=== PATIENT | male | born 1965 | race Caucasian/White ===

== ENCOUNTER 2016-05-08 11:08 | Emergency (ER) | payer OTHER ==
[~2016-05-08] VITALS: Ht 181.6 cm; Wt 88.5 kg
[~2016-05-08 11:08] MED LIST: ATENOLOL25 M1 PO; ATIVAN0.5 MG PO; ATIVAN1 M1 PO; BACTRIM DS TAB1 EACH PO; BACTROBAN15 GM TOP; CHLORDIAZEPOXID10 M2 PO; CIPRO500 M1 PO; CITALOPRAM HBR20 MG PO; FOLIC ACID 1 MG PO; IBUPROFEN600 M1 PO; KEFLEX500 M1 PO; Theragran Vitamins PO; VITAMIN B1100 MG PO
--- NOTE | 2016-05-08 12:26 | ED MVC/FALL/TRAUMA COMPLAINT ---
History of Present Illness General Chief Complaint: General Adult Stated Complaint: S/P FALL THIS AM "RIB PAIN" Source: patient, old records Exam Limitations: no limitations Vital Signs & Intake/Output Vital Signs & Intake/Output Vital Signs Date Time Temp Pulse Resp B/P Pulse O2 O2 Flow FiO2 Ox Delivery Rate 05/08 1144 97 Room Air 05/08 1115 97.4 120 16 133/89 98 Room Air Allergies Coded Allergies: No Known Drug Allergies (02/03/16) Reconcile Medications Ibuprofen 600 MG TABLET 1 TAB PO TID PRN PAIN with food Triage Note: PT STATES THAT HE TRIPPED OVER HIS DOG THIS AM AND HIT R SIDE RIBS ON COFFEE TABLE, DENIES HITTING HIS HEAD OT LOC. TOOK MOTRIN Triage Nurses Notes Reviewed? yes HPI: Patient presents for evaluation of injury sustained status post fall at 4:00 this morning at home. Patient states he had gotten up to use the bathroom and tripped over his dog. He landed on a coffee table striking the right side of his chest. He now presents for evaluation of a severe sharp right-sided chest and rib pain that worsens with coughing. He states he had fallen about a month ago with a suspected rib injury at that time as well. He tried Motrin 600 mg without improvement. Past History Travel History Traveled to [place] past 21 day No Medical History Any Pertinent Medical History? 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 History of MRSA: No History of VRE: No History of CDIFF: No Tetanus Vaccine: 07/05/15 Surgical History Surgical History: pilonidal cyst excision, left middle phalanx tenolysis, left shoulder glenohumoral debridement with anterior arthroscopic acromioplasty and distal clavicle excision Psychosocial History Who do you live with Patient/Self Services at Home None What is your primary language Mohawk Tobacco Use: Current Daily Use Daily Tobacco Use Amount/Type: => 5 Cigarettes daily ETOH Use: alcoholic Illicit Drug Use: denies illicit drug use Family History Family History, If Any: SISTER FH: multiple sclerosis FATHER FH: alcoholism Hx Contributory? No Review of Systems Review of Systems Constitutional: Reports: no symptoms. Eyes: Reports: no symptoms. Ears, Nose, Throat, Mouth: Reports: no symptoms. Respiratory: Reports: no symptoms. Cardiovascular: Reports: no symptoms. Gastrointestinal/Abdominal: Reports: no symptoms. Genitourinary: Reports: no symptoms. Musculoskeletal: Reports: see HPI. Skin: Reports: no symptoms. Neurological/Psychological: Reports: no symptoms. All Other Systems: Reviewed and Negative Physical Exam Physical Exam General Appearance: see below Comments: Gen.: Well-nourished, well-developed, no acute respiratory distress. Head: Normocephalic, atraumatic, nontender. Eyes: Normal inspection bilaterally, estrellita, EOMI Ears: Normal inspection bilaterally Nose: Normal inspection Throat/mouth : Moist mucosa Neck: Supple, full range of motion, no goiter, nontender Heart: Regular rate and rhythm, no murmurs rubs or gallops Lungs: Clear to auscultation bilaterally with normal air entry Chest: Right lateral rib tenderness without soft tissue swelling, ecchymoses or abrasion. Question of subcutaneous emphysema. Back: Normal range of motion, nontender Abdomen: Soft, nontender, nondistended, normal bowel sounds Extremities: Normal range of motion grossly, no tenderness, no cyanosis clubbing or edema of the upper extremities Neurologic: Cranial nerves grossly intact, speech is clear Skin: warm and dry and without ecchymoses or soft tissue swelling or erythema Psychiatric: Calm, cooperative, no apparent delusions or hallucinations Core Measures ACS in differential dx? No Severe Sepsis Present: No Septic Shock Present: No Progress Differential Diagnosis: FX,CONTUSION Plan of Care: Orders Procedure Date/time Status XRY-RIBS UNILATERAL-RIGHT 05/08 1225 Active XRY-CHEST XRAY, ONE VIEW ONLY 05/08 1225 Active Diagnostic Imaging: Discussed w/RAD: Radiology Read. Radiology Impression: PATIENT: BRYAN MENDOZA PRESENT AGE: 51 PATIENT ACCOUNT NO: [id number] : 63 LOCATION: [facility] ORDERING PHYSICIAN: GAGAN GARAY MD SERVICE DATE: 05/08/16 EXAM TYPE: RAD - XRY-RIBS UNILATERAL-RIGHT EXAMINATION: XR RIBS, RIGHT CLINICAL INFORMATION : Fall with right rib pain and tenderness COMPARISON: 04/13/2016 TECHNIQUE: PA chest. AP and lateral views of the right ribs. FINDINGS: Lung volumes are symmetric. No focal consolidation is seen. No evidence of pneumothorax, pleural effusion, or pulmonary edema. The cardiomediastinal contour is unremarkable. No displaced rib fracture is seen. IMPRESSION: No rib fracture identified. No acute cardiopulmonary findings. 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 <Electronically signed in Other Vendor System> SIGNED BY: LAKESHA MCINTYRE MD 05/08/161357 Departure Departure Disposition: HOME OR SELF CARE Condition: Stable Clinical Impression Primary Impression: Chest wall contusion Qualifiers: Encounter type: initial encounter Laterality: right Qualified Code: S20.211A - Contusion of right front wall of thorax, initial encounter Referrals: JAMES ACOSTA MD (PCP/Family) Additional Instructions: Voltaren as needed for your rib pain. Add tramadol if necessary. Ice over the next 48 hours then switch to heat. Activity as tolerated. Follow-up with your primary care doctor in 2 weeks if not improved. Return if any concerns or sudden worsening. Please note that there might be incidental findings in your evaluation that are unrelated to the current emergency department visit. Please notify your primary care doctor about this emergency department visit in order to obtain and review all of the testing performed so that these incidental findings can be monitored as needed. If you had an x-ray performed, please understand that some fractures may not be seen on the initial set of x-rays. If your symptoms persist you might need a repeat set of x-rays to check for such a fracture. If you had a laceration evaluated, please understand that foreign bodies such as glass or wood may not be visible to the naked eye or on plain x-rays. If the wound becomes red, swollen, increasingly more painful or if there is any drainage from the wound, please have it reevaluated by a physician for the possibility of a retained foreign body. Thank you for choosing the [facility] Emergency Department for your care. It was a pleasure to serve you today. Gagan Garay M.D. [facility] Departure Forms: Customer Survey General Discharge Information Prescriptions: Current Visit Scripts Diclofenac Sodium 1 TAB PO BID PRN PAIN #14 TAB Tramadol HCl (Ultram) 1-2 TAB PO Q6P PRN PAIN #20 TAB
--- NOTE | 2016-05-08 13:58 | RADIOLOGY REPORT ---
EXAMINATION: XR RIBS, RIGHT CLINICAL INFORMATION: Fall with right rib pain and tenderness COMPARISON: 04/13/2016 TECHNIQUE: PA chest. AP and lateral views of the right ribs. FINDINGS: Lung volumes are symmetric. No focal consolidation is seen. No evidence of pneumothorax, pleural effusion, or pulmonary edema. The cardiomediastinal contour is unremarkable. No displaced rib fracture is seen. IMPRESSION: No rib fracture identified. No acute cardiopulmonary findings.
[2016-05-08] MEDS ORDERED: DICLOFENAC SODI75 M2 PO (14:09)
[2016-05-08] MEDS ORDERED: ULTRAM50 M1 PO (14:09)
[2016-05-08 14:21] VITALS: BP 128/84
== END 2016-05-08 14:25 ==
LOC: ERH 11:08
DX: S20.211A Contusion of right front wall of thorax, initial encounter (principal); R07.9 Chest pain, unspecified; W01.0XXA Fall on same level from slipping, tripping and stumbling without subsequent striking against object, initial encounter
CPT/HCPCS: 71100-RT

== ENCOUNTER 2016-05-31 20:15 | Emergency (ER) | payer OTHER ==
[~2016-05-31] VITALS: Ht 182.9 cm; Wt 90.7 kg
[~2016-05-31 20:15] MED LIST changes: +DICLOFENAC SODI75 M2 PO; +ULTRAM50 M1 PO
--- NOTE | 2016-05-31 20:47 | ED PSYCHIATRIC COMPLAINT ---
History of Present Illness General Chief Complaint: ETOH/Drug Related Complaint Stated Complaint: ETOH Source: patient, old records Exam Limitations: intoxication Vital Signs & Intake/Output Vital Signs & Intake/Output Vital Signs Date Time Temp Pulse Resp B/P Pulse O2 O2 Flow FiO2 Ox Delivery Rate 05/31 2250 97.6 90 20 141/83 97 Room Air 05/31 2245 97.6 90 20 141/83 05/319 98.2 98 18 135/86 05/31 2044 98.2 98 18 135/86 97 Room Air ED Intake and Output 06/01 0000 05/31 1200 Intake Total Output Total Balance Patient 200 lb Weight Allergies Coded Allergies: No Known Drug Allergies (02/03/16) Reconcile Medications Diclofenac Sodium 75 MG TABLET.DR 1 TAB PO BID PRN PAIN Ibuprofen 600 MG TABLET 1 TAB PO TID PRN PAIN with food Tramadol HCl (Ultram) 50 MG TABLET 1-2 TAB PO Q6P PRN PAIN Triage Note: 51 Y/O MALE BIBA FROM HOME FOR ETOH. PT CALLED EMS AND STS HE WAS SOBER BUT WONT SAY FOR HOW LONG JUST KEEPS SAYING "TOO LONG" AND FOR THE PAST 3 DAYS HAS BEEN BINGE DRINKING WHISKEY BUT AGAIN PT WONT STATE QUANTITY JUST " TOO MUCH". PT DENIES SI/HI AT PRESENT AND SECURITY AT BEDSIDE TO WAND AND CHANGE INTO GOWN. PT NOTED TO BE VERY UNCOOPERATIVE AND NEEDS A LOT OF PRODING TO COMPLY Triage Nurses Notes Reviewed? yes Onset: UNKNOWN Severity: severe Associated Symptoms: INTOXICATED HPI: This is a 51-year-old male arrives by EMS from home for chief complaint buccal intoxication. Patient admits to taking a lot today and every day. Denies any drug use. Denies feeling suicidal. He is awake and alert, in moderate distress , very tearful and sobbing. He states his fiance probably called EMS. (LAURA PIZARRO,SHERRI) Past History Travel History Traveled to [place] past 21 day No Medical History Any Pertinent Medical History? 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 History of MRSA: No History of VRE: No History of CDIFF: No Tetanus Vaccine: 07/05/15 Surgical History Surgical History: pilonidal cyst excision, left middle phalanx tenolysis, left shoulder glenohumoral debridement with anterior arthroscopic acromioplasty and distal clavicle excision Psychosocial History Who do you live with Patient/Self Services at Home None What is your primary language Azerbaijani Tobacco Use: Refused to answer ETOH Use: alcoholic Illicit Drug Use: denies illicit drug use Family History Family History, If Any: SISTER FH: multiple sclerosis FATHER FH: alcoholism Hx Contributory? No (SHERRI SANCHEZ MD) Review of Systems Review of Systems Constitutional: Reports: see HPI (LIMITED (INTOXICATED)). Respiratory: Denies: short of breath. Cardiovascular: Denies: chest pain. (SHERRI SANCHEZ MD) Physical Exam Physical Exam General Appearance: well developed/nourished, alert, awake, intoxicated Head: atraumatic, normal appearance Eyes: Bilateral: PERRL, EOMI. Ears, Nose, Throat: normal pharynx, normal ENT inspection, hearing grossly normal Neck: normal inspection, supple, full range of motion Respiratory: normal breath sounds, chest non-tender, no respiratory distress Cardiovascular: regular rate/rhythm Gastrointestinal: normal bowel sounds, soft, non-tender Extremities: normal range of motion Neurological/Psychiatric: awake, alert, INTOXICATED Appearance/Memory/Insight: disheveled, impaired insight Behavoir/Eye Contact/Speech: belligerent SAD PERSONS Done? patient not suicidal (SHERRI SANCHEZ MD) Progress Differential Diagnosis: ETOH INTOXICATION Plan of Care: SOBRIETY Hand-Off Endorsed To: JOHNIE PATEL MD Endorsed Time: 2300 Pending: other (SOBRIETY) (SHERRI SANCHEZ MD) Departure Departure Disposition: STILL A PATIENT Condition: Stable Clinical Impression Primary Impression: Alcohol intoxication Referrals: JAMES ACOSTA MD (PCP/Family) Departure Forms: Customer Survey General Discharge Information (SHERRI SANCHEZ MD) Departure Comments 06/01/16, 6:26AM.... Pt is awake and alert. He does not wish detox. He is otherwise well, denies SI/HI. He is coherent and clear in his speech and thinking. He is stable and safe for discharge. (JOHNIE PATEL MD)
[2016-06-01 06:35] VITALS: BP 132/82
[2016-06-02] MEDS ORDERED: ZOFRAN ODT4 M1 PO (08:11)
[2016-06-02] MEDS ORDERED: CHLORDIAZEPOXID25 M3 PO (08:23)
== END 2016-06-01 06:40 ==
LOC: ERH 20:15
DX: F10.129 Alcohol abuse with intoxication, unspecified (principal)

== ENCOUNTER 2016-06-01 21:55 | Emergency (ER) | payer OTHER ==
[~2016-06-01] VITALS: Ht 182.9 cm; Wt 86.2 kg
--- NOTE | 2016-06-01 22:22 | ED PSYCHIATRIC COMPLAINT ---
History of Present Illness General Chief Complaint: ETOH/Drug Related Complaint Stated Complaint: BIBA ETOH Source: patient, family, old records, EMS Exam Limitations: intoxication Vital Signs & Intake/Output Vital Signs & Intake/Output Vital Signs Date Time Temp Pulse Resp B/P Pulse O2 O2 Flow FiO2 Ox Delivery Rate 06/02 0800 98.8 109 20 152/94 97 Room Air 06/02 0759 97.0 109 20 152/94 06/02 0634 98.2 95 18 145/83 97 Room Air 06/02 0630 98.2 95 18 145/83 06/02 0430 98.7 86 18 152/92 06/02 0430 98.7 86 18 152/92 97 Room Air 06/01 2234 Room Air 06/01 2158 98.9 97 16 154/87 99 Room Air ED Intake and Output 06/02 0000 06/01 1200 Intake Total Output Total Balance Patient 190 lb Weight Allergies Coded Allergies: No Known Drug Allergies (02/03/16) Triage Note: BIBA FROM HOME FOR ETOH ABUSE. PER PT DRANK 1 GALLON OF WHISKEY. PT WAS HERE IN ED YESTERDAY FOR ETOH ABUSE ALSO. PT AWAKE, ALERT, ARGUMENTATIVE. PT BEING ALOOF IN ANSWERS WILL NOT SAY HOW MUCH HE DRANK. Triage Nurses Notes Reviewed? yes Unable To Obtain Hx Due To: patient intoxication Onset: Just prior to arrival Duration: day(s):, constant, continues in ED Timing: recent history Severity: severe Associated Symptoms: impaired concentration HPI: Patient has been drinking heavily was here yesterday for alcohol intoxication. His returned home from work and found him confused shaking. There's been no fever chills nausea vomiting diarrhea abdominal pain chest pain shortness breath headache dysuria rash bleeding suicidal ideation homicidal ideation hallucination. (CLARE PIZARRO,MARIE) Reconcile Medications Chlordiazepoxide HCl 25 MG CAPSULE 4 CAP PO AD PRN DETOX 1-2 TAB TID X 1 DAY 1-2 TAB BID X 1 DAY 1-2 TAB QD X 1 DAY Ondansetron (Zofran Odt) 4 MG TAB.RAPDIS 1 TAB PO Q6 PRN NAUSEA (LAURA PIZARRO,SHERRI) Past History Travel History Traveled to [place] past 21 day No Medical History Any Pertinent Medical History? 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 History of MRSA: No History of VRE: No History of CDIFF: No Tetanus Vaccine: 07/05/15 Surgical History Surgical History: pilonidal cyst excision, left middle phalanx tenolysis, left shoulder glenohumoral debridement with anterior arthroscopic acromioplasty and distal clavicle excision Psychosocial History Who do you live with Patient/Self Services at Home None What is your primary language Citizen Of [place] Tobacco Use: Current Daily Use Daily Tobacco Use Amount/Type: => 5 Cigarettes daily ETOH Use: alcoholic Illicit Drug Use: denies illicit drug use Family History Family History, If Any: SISTER FH: multiple sclerosis FATHER FH: alcoholism Hx Contributory? No (MARIE SPARKS MD) Review of Systems Review of Systems Constitutional: Reports: no symptoms. EENTM: Reports: no symptoms. Respiratory: Reports: no symptoms. Cardiovascular: Reports: no symptoms. GI: Reports: no symptoms. Genitourinary: Reports: no symptoms. Musculoskeletal: Reports: no symptoms. Skin: Reports: no symptoms. Neurological/Psychological: Reports: see HPI, anxiety, tremors. Hematologic/Endocrine: Reports: no symptoms. Immunologic/Allergic: Reports: no symptoms. All Other Systems: Reviewed and Negative (MARIE SPARKS MD) Physical Exam Physical Exam General Appearance: well developed/nourished, mild distress Head: atraumatic Eyes: Bilateral: PERRL, EOMI. 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 patient not suicidal (MARIE SPARKS MD) Progress Differential Diagnosis: drug intoxication, drug overdose, drug withdrawal, electrolyte abnormality, hypoglycemia Plan of Care: Orders Procedure Date/time Status Regular Diet 06/02 B Active Patient Safety Monitor 06/02 0615 Active Patient Safety Monitor 06/02 214 Active Patient Safety Monitor 06/01 2216 Active CIWA 06/01 2216 Active ETHANOL 06/01 2216 Complete COMPREHENSIVE METABOLIC PANEL 06/01 2216 Complete CBC WITHOUT DIFFERENTIAL 06/01 2216 Complete Laboratory Tests 06/01/16 1050: Anion Gap 12, Estimated GFR > 60, BUN/Creatinine Ratio 28.6 H, Glucose 105 H, Calcium 8.8, Total Bilirubin 0.6, AST 201 H, ALT 230 H, Alkaline Phosphatase 67, Total Protein 7.1, Albumin 4.2, Globulin 2.9, Albumin/Globulin Ratio 1.4, CBC w Diff NO MAN DIFF REQ, RBC 4.60 L, MCV 92.0, MCH 31.5 H, RDW 12.8, MPV 6.5 L, Gran % 40.2 L, Lymphocytes % 46.5, Monocytes % 12.2 H, Eosinophils % 0.6, Basophils % 0.5, Absolute Granulocytes 1.9, Absolute Lymphocytes 2.2, Absolute Monocytes 0.6, Absolute Eosinophils 0, Absolute Basophils 0, PUBS MCHC 34.3, Serum Alcohol 272.0 Hand-Off Endorsed To: SHERRI SANCHEZ MD Endorsed Time: 711 Pending: other (sobriety, CIWA) (MARIE SPARKS MD) Departure Departure Disposition: HOME OR SELF CARE Condition: Stable Clinical Impression Primary Impression: Alcohol dependence syndrome Qualifiers: Substance use status: with intoxication Complication of substance- induced condition: with delirium Qualified Code: F10.221 - Alcohol dependence with intoxication delirium Referrals: KARLA PIZARRO,JAMES Nelson (PCP/Family) Departure Forms: Customer Survey General Discharge Information (MARIE SPARKS MD) Departure Time of Disposition: 808 Additional Instructions: Follow up with the list of outpatient detox facilities provided to you this morning. Take the librium and zofran as directed. Your prescriptions are at your pharmacy. Prescriptions: Current Visit Scripts Ondansetron (Zofran Odt) 1 TAB PO Q6 PRN NAUSEA #20 TAB Chlordiazepoxide HCl 4 CAP PO AD PRN DETOX #12 CAP 1-2 TAB TID X 1 DAY 1-2 TAB BID X 1 DAY 1-2 TAB QD X 1 DAY (SHERRI SANCHEZ MD) (SHERRI SANCHEZ MD)
[2016-06-01 22:54] LABS: ABSOLUTE BASOPHIL COUNT 0 /CUMM (0.0-0.2); ABSOLUTE EOSINOPHIL COUNT 0 /CUMM (0.0-0.7); ABSOLUTE GRANULOCYTE CT 1.9 /CUMM (1.4-6.5); ABSOLUTE LYMPH COUNT 2.2 /CUMM (1.2-3.4); ABSOLUTE MONOCYTE COUNT 0.6 /CUMM (0.10-0.60); BASOPHIL % 0.5 % (0.0-2.0); EOSINOPHIL % 0.6 % (0-5); GRANULOCYTE % 40.2 % (42.2-75.2); HEMATOCRIT 42.3 % (42-52); MEAN CORPUSCULAR HGB 31.5 PG (27.0-31.0); MEAN CORPUSCULAR HGB CONC 34.3 G/DL (33.0-37.0); MEAN PLATELET VOLUME 6.5 FL (7.4-10.4); PLATELET COUNT 286 /CUMM (130-400); RBC DISTRIBUTION WIDTH 12.8 % (11.5-14.5); WHITE BLOOD CELL COUNT 4.8 /CUMM (4.8-10.8)
[2016-06-02 08:00] VITALS: BP 152/94
[2016-06-02] MEDS ORDERED: ZOFRAN ODT4 M1 PO (08:11)
[2016-06-02] MEDS ORDERED: CHLORDIAZEPOXID25 M3 PO (08:23)
== END 2016-06-02 08:44 ==
LOC: ERH 21:55
PROVIDERS: Emergency Medicine
DX: F10.20 Alcohol dependence, uncomplicated (principal)
CPT/HCPCS: G0480

== ENCOUNTER 2016-06-26 03:16 | Inpatient (IN) | payer OTHER ==
[~2016-06-26] VITALS: Ht 182.9 cm; Wt 86.2 kg
[2016-06-26] VITALS (8 sets, daily range): BP systolic 128–162; BP diastolic 70–110
[~2016-06-26 03:16] MED LIST changes: +CHLORDIAZEPOXID25 M3 PO; +ZOFRAN ODT4 M1 PO
--- NOTE | 2016-06-26 03:25 | NUR ---
PT BIBA FOR ?ALCOHOL WITHDRAWAL. PT HAS HX OF ALCOHOL ADDICTION. STATES LAST DRINK WAS AROUND 0500 IN 06/25/16 AND THAT HE DRANK "TOO MUCH, NOT REALLY SURE." PT ARRIVES ALERT, CONVERSING WITH STAFF AND TREMULOUS. TREMORS STOPPED WHILE PT SIGNING PAPERS FOR EMS.
[2016-06-26 03:39] LABS: ABSOLUTE BASOPHIL COUNT 0.1 /CUMM (0.0-0.2); ABSOLUTE EOSINOPHIL COUNT 0 /CUMM (0.0-0.7); ABSOLUTE GRANULOCYTE CT 5.1 /CUMM (1.4-6.5); ABSOLUTE LYMPH COUNT 2.3 /CUMM (1.2-3.4); ABSOLUTE MONOCYTE COUNT 0.5 /CUMM (0.10-0.60); BASOPHIL % 0.6 % (0.0-2.0); EOSINOPHIL % 0.4 % (0-5); HEMATOCRIT 44.3 % (42-52); MEAN CORPUSCULAR HGB 31.8 PG (27.0-31.0); MEAN CORPUSCULAR HGB CONC 34.2 G/DL (33.0-37.0); MEAN CORPUSCULAR VOLUME 93.1 FL (80.0-94.0); MEAN PLATELET VOLUME 6.5 FL (7.4-10.4); PLATELET COUNT 304 /CUMM (130-400); RBC DISTRIBUTION WIDTH 12.9 % (11.5-14.5); RED BLOOD CELL CT 4.76 /CUMM (4.70-6.10); WHITE BLOOD CELL COUNT 7.9 /CUMM (4.8-10.8)
--- NOTE | 2016-06-26 03:50 | NUR ---
PT CIWA 9. MD AWARE. PT MEDICATED WITH LIBRIUM AND ZOFRAN PER EMAR. WILL CTM.
--- NOTE | 2016-06-26 04:19 | NUR ---
PT RESTING COMFORTABLY ON STRETCHER AT THIS TIME. NO LONGER TREMULOUS. LIGHTS DIMMED PER PT REQUEST. WILL CTM.
--- NOTE | 2016-06-26 04:40 | NUR ---
PATIENT FIANCE TO BEDSIDE.
--- NOTE | 2016-06-26 04:45 | ED PSYCHIATRIC COMPLAINT ---
See Addendum History of Present Illness General Chief Complaint: ETOH/Drug Related Complaint Stated Complaint: BIBA ETOH WITHDRAWL Source: patient, old records, EMS Exam Limitations: no limitations Vital Signs & Intake/Output Vital Signs & Intake/Output Vital Signs Date Time Temp Pulse Resp B/P Pulse O2 O2 Flow FiO2 Ox Delivery Rate 06/26 0548 97.2 94 18 146/92 95 Room Air 06/26 0545 97.2 94 18 146/92 06/26 0340 97.4 106 20 162/98 06/26 0332 Room Air 06/26 0325 97.3 96 20 162/98 98 Room Air Allergies Coded Allergies: No Known Drug Allergies (02/03/16) Reconcile Medications Chlordiazepoxide HCl 25 MG CAPSULE 4 CAP PO AD PRN DETOX 1-2 TAB TID X 1 DAY 1-2 TAB BID X 1 DAY 1-2 TAB QD X 1 DAY Ondansetron (Zofran Odt) 4 MG TAB.RAPDIS 1 TAB PO Q6 PRN NAUSEA Triage Note: PT BIBA FOR ?ALCOHOL WITHDRAWAL. PT HAS HX OF ALCOHOL ADDICTION. STATES LAST DRINK WAS AROUND 0500 IN 06/25/16 AND THAT HE DRANK "TOO MUCH, NOT REALLY SURE." PT ARRIVES ALERT, CONVERSING WITH STAFF AND TREMULOUS. TREMORS STOPPED WHILE PT SIGNING PAPERS FOR EMS. Triage Nurses Notes Reviewed? yes Onset: Just prior to arrival Duration: hour(s):, constant, continues in ED Timing: recent history Severity: severe Associated Symptoms: anxiety, impaired concentration, insomnia HPI: Patient reports his last drink of alcohol was 22 hours prior to admission. He reports drinking up to to 1.75 L of alcohol in a day or whatever he can find. He complains of being tremulous with nausea vomiting. He denies fever chills chest pain cough shortness of breath headache dysuria rash bleeding suicidal ideation homicidal ideation hallucination withdrawal seizure. (CLARE PIZARRO,MARIE) Past History Travel History Traveled to [place] past 21 day No Medical History Any Pertinent Medical History? 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 History of MRSA: No History of VRE: No History of CDIFF: No Tetanus Vaccine: 07/05/15 Surgical History Surgical History: pilonidal cyst excision, left middle phalanx tenolysis, left shoulder glenohumoral debridement with anterior arthroscopic acromioplasty and distal clavicle excision Psychosocial History Who do you live with Patient/Self Services at Home None What is your primary language Omani Tobacco Use: Current Daily Use Daily Tobacco Use Amount/Type: => 5 Cigarettes daily ETOH Use: alcoholic Family History Family History, If Any: SISTER FH: multiple sclerosis FATHER FH: alcoholism Hx Contributory? No (MARIE SPARKS MD) Review of Systems Review of Systems Constitutional: Reports: see HPI, malaise. EENTM: Reports: no symptoms. Respiratory: Reports: no symptoms. Cardiovascular: Reports: no symptoms. GI: Reports: see HPI, nausea, vomiting. Genitourinary: Reports: no symptoms. Musculoskeletal: Reports: no symptoms. Skin: Reports: no symptoms. Neurological/Psychological: Reports: see HPI, anxiety, tremors. Hematologic/Endocrine: Reports: no symptoms. Immunologic/Allergic: Reports: no symptoms. All Other Systems: Reviewed and Negative (MARIE SPARKS MD) Physical Exam Physical Exam General Appearance: well developed/nourished, alert, awake, anxious, moderate distress, intoxicated Head: atraumatic, normal appearance Eyes: Bilateral: normal appearance, PERRL, EOMI. 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 patient not suicidal (MARIE SPARKS MD) Progress Differential Diagnosis: drug intoxication, drug overdose, drug withdrawal, electrolyte abnormality Plan of Care: Orders Procedure Date/time Status Regular Diet 06/26 B Active CIWA 06/26 329 Active MAGNESIUM 06/26 329 Complete ETHANOL 06/26 329 Complete COMPREHENSIVE METABOLIC PANEL 03/13 0330 Complete CBC WITHOUT DIFFERENTIAL 06/26 329 Complete Laboratory Tests 06/26/16 0330: Anion Gap 18 H, Estimated GFR > 60, BUN/Creatinine Ratio 26.3 H, Glucose 150 H, Calcium 9.6, Magnesium 1.7, Total Bilirubin 0.8, AST 120 H, ALT 89 H, Alkaline Phosphatase 79, Total Protein 7.7, Albumin 4.4, Globulin 3.3, Albumin/ Globulin Ratio 1.3, CBC w Diff NO MAN DIFF REQ, RBC 4.76, MCV 93.1, MCH 31.8 H, RDW 12.9, MPV 6.5 L, Gran % 64.0, Lymphocytes % 28.7, Monocytes % 6.3, Eosinophils % 0.4, Basophils % 0.6, Absolute Granulocytes 5.1, Absolute Lymphocytes 2.3, Absolute Monocytes 0.5, Absolute Eosinophils 0, Absolute Basophils 0.1, PUBS MCHC 34.2, Serum Alcohol 149.0 Hand-Off Endorsed To: KASSY CARLTON DO Endorsed Time: 0700 Pending: other (CIWA trend) Comments: Family reports they've been trying to find inpatient detox over the last several weeks but been unsuccessful. (MARIE SPARKS MD) Departure Departure Disposition: STILL A PATIENT Condition: Stable Clinical Impression Primary Impression: Alcohol dependence with intoxication and delirium Referrals: JAMES ACOSTA MD (PCP/Family) Departure Forms: Customer Survey General Discharge Information (MARIE SPARKS MD) Departure Comments 06/26/16 7:37 am The patient was signed out to me by Dr. Sparks. He has a history of alcohol withdrawal seizures within the last year, and had a CIWA score greater than 8. His pending admission for alcohol detox. (KASSY CARLTON DO)
--- NOTE | 2016-06-26 04:46 | NUR ---
TALA [phone]. PLEASE CALL WITH UPDATES
--- NOTE | 2016-06-26 06:43 | NUR ---
PT REMAINS ASLEEP AT THIS TIME, OFFERING NO COMPLAINTS. RR NOTED, NAD. SITTER IN PLACE FOR SAFETY.
--- NOTE | 2016-06-26 07:30 | NUR ---
ASSUMED CARE, AMBROSIO MOSQUEDA IN ATTENDANCE.
--- NOTE | 2016-06-26 08:11 | NUR ---
PACING IN ROOM, REQUESTING LIBRIUM, STATES HE FEELS "SHAKY". SOME EXAGERATED HAND MOVMENTS NOTED. ALSO C/O NAUSEA.
--- NOTE | 2016-06-26 10:14 | NUR ---
pt admitted to room 228
--- NOTE | 2016-06-26 10:15 | NUR ---
PACING IN ROOM, AM MEDS GIVEN.
--- NOTE | 2016-06-26 10:37 | History & Physical ---
FRITZ PIZARRO,ANISH 06/26/16 1016: General Information and HPI MD Statement: I have seen and personally examined BRYAN MENDOZA and documented this H&P. The patient is a 51 year old M who presented with a patient stated chief complaint of tremors[]. Source of Information: patient, old records Exam Limitations: no limitations History of Present Illness: 51-year-old male with a past medical history ETOH dependence, tobacco use presents to the ER requesting alcohol detoxification. Was last seen in [place] for alcohol detoxification May 2015. He does report having a alcohol withdrawal seizure in August 2015, at [facility], in [place]. He is unsure why he started drinking again, cannot identify any stressors in his life causing the drinking other than his father was an alcoholic. He reports drinking 1.75 L of vodka daily. 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 He does report that she is tired of his drinking, and wants him to make changes. He reports, abdominal pain, diffuse 5/10, diarrhea. Apparently 3 bowel movements since arriving in the ER, without blood. He denies chest pain, shortness of breath, palpitations, lightheadedness, nausea or vomiting. He is visually tremulous, however there appears to be a component of intentionally shaking. 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 Home Who Do You Live With? fiance Services at Home: None Primary Language: Ukrainian Smoking Status: Current Everyday Smoker (1PPD) ETOH Use: alcoholic Functional Ability ADLs Independent: dressing, eating, toileting, bathing. 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 EENTM: Denies: blurred vision, double vision, visual changes. Cardiovascular: Denies: chest pain, palpitations, peripheral edema. Respiratory: Denies: cough, short of breath. GI: Reports: abdominal pain, diarrhea, changes in stool. Denies: constipation, distention, melena, nausea, vomiting. Genitourinary: Reports: no symptoms. Musculoskeletal: Reports: no symptoms. Skin: Reports: no symptoms. Neurological/Psychological: Reports: tremors. Denies: anxiety, depressed, dementia, headache. Hematologic/Endocrine: Reports: no symptoms. Immunologic/Allergic: Reports: no symptoms. Exam & Diagnostic Data Last 24 Hrs of Vital Signs/I&O Vital Signs Date Time Temp Pulse Resp B/P Pulse O2 O2 Flow FiO2 Ox Delivery Rate 06/26 1020 98.4 100 18 158/90 06/26 1020 97.4 100 20 158/90 100 Room Air 06/26 0809 98.2 115 18 128/91 06/26 0806 98.0 115 18 128/91 97 Room Air 06/26 0548 97.2 94 18 146/92 95 Room Air 06/26 0545 97.2 94 18 146/92 06/26 0340 97.4 106 20 162/98 06/26 0332 Room Air 06/26 0325 97.3 96 20 162/98 98 Room Air Intake & Output 06/26 1600 06/26 0800 06/26 0000 Intake Total 100 Output Total Balance 100 Intake, Oral 100 Patient 190 lb Weight Physical Exam General Appearance Alert, Oriented X3, Cooperative, No Acute Distress Skin No Rashes, No Breakdown HEENT Atraumatic, PERRLA, EOMI, Mucous Membr. moist/pink Neck Supple, No JVD Lymphatic Cervical nl Cardiovascular Regular Rate, Normal S1, Normal S2, No Murmurs Lungs Clear to Auscultation, Normal Air Movement Abdomen Normal Bowel Sounds, Soft, No Tenderness Neurological Normal Speech, Strength at 5/5 X4 Ext, Normal Tone Extremities No Edema, Normal Pulses Vascular Normal Pulses Last 24 Hrs of Labs/Cesario: Laboratory Tests 06/26/16 0330: Anion Gap 18 H, Estimated GFR > 60, BUN/Creatinine Ratio 26.3 H, Glucose 150 H, Calcium 9.6, Magnesium 1.7, Total Bilirubin 0.8, AST 120 H, ALT 89 H, Alkaline Phosphatase 79, Total Protein 7.7, Albumin 4.4, Globulin 3.3, Albumin/ Globulin Ratio 1.3, CBC w Diff NO MAN DIFF REQ, RBC 4.76, MCV 93.1, MCH 31.8 H, RDW 12.9, MPV 6.5 L, Gran % 64.0, Lymphocytes % 28.7, Monocytes % 6.3, Eosinophils % 0.4, Basophils % 0.6, Absolute Granulocytes 5.1, Absolute Lymphocytes 2.3, Absolute Monocytes 0.5, Absolute Eosinophils 0, Absolute Basophils 0.1, PUBS MCHC 34.2, Serum Alcohol 149.0 Diagnostic Data Other Results CIWAs: 11, 5, 9, 6, 0, 0, 13, 3, 0, 0 Assessment/Plan Assessment: 51-year-old male with a past medical history ETOH dependence, tobacco use presents to the ER requesting alcohol detoxification. Was last seen in [place] for alcohol detoxification May 2015. He does report having a alcohol withdrawal seizure in August 2015, at [facility], in [place]. His CIWAS have been elevated this morning, 11, 5, 9, 6. We will admit him to floor and treat for ETOH withdrawal. ETOH detox -PO ativan 2mg PO Q6 hrs -IV ativan 1mg Q2 PRN per CIWAs -Social work consult to discuss alcohol cessation options with patient -Will start banana bag this morning -Monitor closely for signs of withdrawal Tobacco use -nicotine patch topical 2mg daily -tobacco cessation counseling Transaminitis, possibly secondary to alcoholic hepatitis -Monitor LFTs -if abdominal pain persists or worsens will image DVT ppx: Lovenox subcutaneous Full code As Ranked By This Provider Problem List: 1. Tobacco use 2. Alcohol dependence 3. Transaminitis Core Measures/Miscellaneous Acute Coronary Syndrome ACS Diagnosis: No Cerebrovascular Accident CVA/TIA Diagnosis: No Congestive Heart Failure CHF Diagnosis: No Venous Thromboembolism VTE Risk Factors: Age > 40 No [facility] VTE prophylaxis d/t: No contraindications No VTE Pharm Prophylaxis d/t: No contraindications VTE Diagnosis: No VTE Type: NONE VTE Confirmed by (Test): NONE Severe Sepsis Severe Sepsis Present: No Septic Shock Septic Shock Present: No Miscellaneous Documentation Attending Case Discussed With: JULIEN MUNSON M.D Primary Care Physician: KARLA PIZARRO,JAMES Nelson Patient sees these Specialists none Level of Patient Care: General Medicine JULIEN MUNSON MD 06/26/16 1636: Attending MD Review Statement Attending Statement Attending MD Statement: examined this patient, discuss w/resident/PA/RECORDS TECH, agreed w/resident/PA/RECORDS TECH, reviewed EMR data (avail), discussed with nursing, discussed with case mgmt, amended to note Attending Assessment/Plan: Patient seen and examined. I reviewed and agree with resident's history and physical as well as assessment and plan. Patient is currently alert and oriented 3. He doesn't appear agitated and anxious although he is visibly tremulous. His sinus tachycardia is improving. Recommendations: -Hydrate with lactated Ringer's at 1.5 mL an hour. -Repeat serum chemistry and magnesium level in the a.m. to monitor his electrolytes. -Continue current benzodiazepine regimen. If he is requiring high doses of when necessary Ativan overnight will likely increase the dose of his standing oral regimen. -Staff reported that patient had eloped off the floor for a while. Recommend adding urine drug screen to his regimen. He has tested positive for amphetamines in the past. -His transaminitis is likely secondary to alcohol. Repeat levels to ensure that they're trending downwards. Would recommend outpatient follow-up with his primary care provider for imaging and monitoring as an outpatient.
--- NOTE | 2016-06-26 13:30 | NUR ---
PT ARRIVED FROM ED BY WHEELCHAIR. STATED HE HAD MRSA PREVIOUSLY IN HIS NARES "LAST SUMMER". HAD ABSCESS IN NOSE WITH DRAINAGE. PLACED ON CONTACT PRECAUTIONS. PT TOLD BY THIS NURSE AND CHARGE NURSE HE HAD TO HAVE GOWN ON WHEN LEAVING ROOM AND TO MINIMIZE TIME OUTSIDE OF HIS ROOM. PT VERBALIZED UNDERSTANDING. PT THEN FOUND IN FULL CLOTHES FROM HOME AND TRYING TO WALK TOWARDS ELEVATOR. PT THEN TOLD BY THIS NURSE AND AERIAL INSTALLER THAT HE CANNOT LEAVE THE FLOOR AND MUST REMAIN IN BLUE SCRUBS. PT RETURNED TO ROOM AND TOOK OFF JACKET, THEN PROMPTED BY THIS NURSE TO REMOVE JEANS WELL. PT GIVEN IV ATIVAN FOR BP 150/110 AND HR 120. PT THEN LEFT ROOM AND WENT DOWN ER STAIRCASE. STOPPED BY ELEUTERIO SITTER AND MEDICAL EDUCATION MANAGER AND RETURNED TO ROOM. THIS NURSE CALLED RESIDENT ANISH TO INFORM OF ELOPEMENT RISK. SITTER PLACED AND RESIDENT AT BEDSIDE TO EXPLAIN RULES AND EXPECTATIONS. PT GIVEN PO 2MG ATIVAN PER TAPER. RESTING IN BED AT THIS TIME, WILL MONITOR.
--- NOTE | 2016-06-26 16:37 | Admission Certification ---
Admission Certification Certification Statement - As attending physician, I certify that at the time of - admission, based on clinical presentation, severity of - symptoms, need for further diagnostic testing and - therapeutic interventions, and risk of adverse outcomes - without in-hospital treatment, in my clinical assessment, - this patient requires an acute hospital stay for a minimum - of two nights or longer. I have also considered psychsocial - factors such as support system, advanced age, financial - issues, cognitive issues, and failed out-patient treatments, - past re-admission history, safety of patient, and lack of - compliance as applicable. Specific rationale supporting this admission is: Requires inpatient admission for management of alcohol withdrawal. He will receive IV fluids and intravenous benzodiazepine therapy as needed.
[2016-06-27] VITALS (8 sets, daily range): BP systolic 130–142; BP diastolic 70–94
--- NOTE | 2016-06-27 02:22 | NUR ---
PTS DUST BOX TENDER AND CIGARETTES TAKEN FROM PT AND LOCKED UP IN PTS CASSETTE
--- NOTE | 2016-06-27 04:58 | NUR ---
LATE ENTRY; 0030 PT REQUESTING HIS WALLET. INFORMATION SYSTEMS SPECIALIST CALLED AND WAS INFORMED PTS WALLET IN LOCKED IN SAFE. PT AWARE. OK WITH LEAVING IT THERE AT THIS TIME.
--- NOTE | 2016-06-27 08:32 | PN- Housestaff ---
FRITZ PIZARRO,ANISH 06/27/16 0818: Subjective Follow-up For: ETOH detoxification Complaints: no complaints Subjective: Seen and examined at bedside. Reports feeling well. No complaints. Abdominal pain has subsided. Reports that overnight he was caught with a cigarette in his pocket, denies smoking. Relinquished said cigarette to nursing staff, along with clearing supervisor. Tolerating oral diet. Review of Systems Constitutional: Reports: see HPI. Objective Last 24 Hrs of Vital Signs/I&O Vital Signs Date Time Temp Pulse Resp B/P Pulse O2 O2 Flow FiO2 Ox Delivery Rate 06/27 0729 98.1 100 18 136/78 96 Room Air 06/27 0600 98.2 106 20 142/94 06/27 0400 98.2 106 18 142/94 06/27 0220 98.2 106 18 142/94 06/27 0217 98.2 106 16 142/94 96 Room Air 06/27 0120 98.0 118 20 140/70 06/27 0000 98.0 118 20 140/70 06/26 2314 98.0 118 20 140/70 06/26 2314 118 140/70 06/26 2108 98.0 117 20 140/110 96 Room Air 06/26 1634 98.4 98 20 151/100 97 Room Air 06/26 1115 97.7 120 20 150/110 06/26 1115 97.7 120 20 150/110 98 Room Air 06/26 1020 98.4 100 18 158/90 06/26 1020 97.4 100 20 158/90 100 Room Air Intake & Output 06/27 1600 06/27 0800 06/27 0000 Intake Total 240 240 Output Total Balance 240 240 Intake, Oral 240 240 Physical Exam General Appearance: Alert, Oriented X3, Cooperative, No Acute Distress Skin: No Rashes, No Breakdown HEENT: Atraumatic, PERRLA, EOMI, Mucous Membr. moist/pink Neck: Supple, No JVD Cardiovascular: Regular Rate, Normal S1, Normal S2 Lungs: Clear to Auscultation, Normal Air Movement Abdomen: Normal Bowel Sounds, Soft, No Tenderness Neurological: Normal Speech, Strength at 5/5 X4 Ext, Normal Tone Extremities: No Edema, Normal Pulses Vascular: Normal Pulses Current Medications: Current Medications Sig/Liliana Start time Last Medication Dose Route Stop Time Status Admin Acetaminophen 650 MG Q6P PRN 06/26 1015 AC PO Cyanocobalamin/ 1 BAG DAILY 06/27 1000 AC Thiamine/Pyridoxine IV Sodium Chloride 1,000 ML Enoxaparin Sodium 40 MG DAILY 06/27 1000 AC SC Folic Acid 0 .STK-MED ONE 06/26 1010 DC PO Folic Acid 1 MG DAILY 06/26 1000 DC 06/26 PO 06/28 1001 1015 Lorazepam 0.5 MG 0000 07/01 0000 DC PO 07/01 0001 Lorazepam 0.5 MG Q6H 06/30 0000 DC PO 06/30 1801 Lorazepam 0.5 MG 1800 06/29 1800 DC PO 06/29 1801 Lorazepam 1 MG Q6H 06/29 0000 DC PO 06/29 1201 Lorazepam 1.5 MG Q12H 06/28 0600 DC PO 06/28 1801 Lorazepam 1 MG Q12H 06/28 0000 CAN PO 06/28 1201 Lorazepam 1.5 MG Q4 06/27 1000 AC PO Lorazepam 1.5 MG Q6 06/27 0600 DC 06/27 PO 06/27 1801 0600 Lorazepam 1 MG ONE ONE 06/26 1115 DC 06/26 IV 06/26 1116 1122 Lorazepam 0 Q1P PRN 06/26 1045 AC 06/27 IV 0118 Lorazepam 0 .STK-MED ONE 06/26 1031 DC PO Lorazepam 2 MG Q2P PRN 06/26 0745 DC PO Lorazepam 1 MG Q2P PRN 06/26 0745 DC PO Lorazepam 2 MG Q6 06/26 0744 DC 06/27 PO 06/27 0001 0007 Multivitamins 0 .STK-MED ONE 06/26 1010 DC PO Multivitamins 1 TAB DAILY 06/26 1000 DC 06/26 PO 1015 Nicotine 7 MG DAILY 06/27 1000 AC 06/26 TOP 2313 Ondansetron HCl 4 MG ONCE ONE 06/26 0830 DC 06/26 IV 06/26 0831 0823 Ondansetron HCl 0 .STK-MED ONE 06/26 0822 DC .ROUTE Patient Medication 1 UNIT 1000 06/27 1000 AC Teaching ED 06/27 1001 Patient Medication 1 UNIT ONE NR 06/26 1100 DC Teaching ED 06/26 1700 Promethazine HCl 12.5 MG ONCE ONE 06/26 1115 DC IV 06/26 1116 Thiamine HCl 0 .STK-MED ONE 06/26 1010 DC PO Thiamine HCl 100 MG DAILY 06/26 1000 DC 06/26 PO 06/28 1001 1015 Last 24 Hrs of Lab/Cesario Results Last 24 Hrs of Labs/Mics: Laboratory Tests 06/27/16 0740: Sodium Pending, Potassium Pending, Chloride Pending, Carbon Dioxide Pending, Anion Gap Pending, BUN Pending, Creatinine Pending, BUN/Creatinine Ratio Pending , Total Bilirubin Pending, Direct Bilirubin Pending, AST Pending, ALT Pending, Alkaline Phosphatase Pending, Total Protein Pending, Albumin Pending Orders CIWA Score (last 24 hrs): 3,0,7,18,6,11,3,18,6 Assessment/Plan Assessment: 51-year-old male with a past medical history ETOH dependence, tobacco use presents to the ER requesting alcohol detoxification. Was last seen in [place] for alcohol detoxification May 2015. He does report having a alcohol withdrawal seizure in August 2015, at [facility], in [place]. His CIWAS have been elevated ovenight. He is being treated for ETOH withdrawl. ETOH detox -PO ativan 1.5mg Q4 hrs -IV ativan 1mg Q2 PRN per CIWAs -Social work consult to discuss alcohol cessation options with patient -Will switch to multivitamins this morning -Monitor closely for signs of withdrawal -Will discontinue sitter this morning, yesterday their was a risk of elopement when RN said he left the floor Tobacco use -nicotine patch topical 2mg daily -tobacco cessation counseling -denies using cigarettes while inpatient Transaminitis, possibly secondary to alcoholic hepatitis -Monitor LFTs, labs pending -abdominal pain has resolved DVT ppx: Lovenox subcutaneous Full code Problem List: 1. Tobacco use 2. Alcohol withdrawal 3. Transaminitis Pain Ratin Pain Location: no pain Pain Goal: Remain pain free Pain Plan: continue current management Tomorrow's Labs & Rationales: monitor labs JULIEN MUNSON MD 06/27/16 1016: Attending Review Statement Attending Statement Attending MD Statement: examined this patient, discuss w/resident/PA/VOLUNTEER MANAGER, agreed w/resident/PA/VOLUNTEER MANAGER, reviewed EMR data (avail), discussed with nursing, reviewed images, amended to note Attending Assessment/Plan: Patient seen and examined. Resting comfortably and not in any acute distress. Nursing staff reports overnight his confiscated cigarettes with the patient. Nicotine patch has been administered. She reports feeling much better. Tremors that he had yesterday which were quite severe have essentially resolved. He is ambulating freely and not in any distress. However he CIWA scores have been fluctuating. So far today he has required 3 mg of IV Ativan for breakthrough. LFTs are trending down. Potassium and magnesium levels are within normal limits. Recommendations: -I agree with resident's recommendation of his changing standing dose of Ativan to 1.5 mg orally every 4 hours. -Continue CIWA protocol.
--- NOTE | 2016-06-27 14:52 | Discharge Summary ---
Visit Information Visit Dates Admission Date: 06/26/16 Discharge Date: 06/27/16 Hospital Course Course Attending Physician: JULIEN MUNSON M.D Primary Care Physician: KALRA PIZARRO,JAMES Nelson Hospital Course: 51-year-old male with a past medical history ETOH dependence, tobacco use presented to the ER requesting alcohol detoxification. Was last seen in [place] for alcohol detoxification May 2015. He reported having a alcohol withdrawal seizure in August 2015, at [facility], in [place]. He is unsure why he started drinking again, cannot identify any stressors in his life causing the drinking other than his father was an alcoholic. He reports drinking 1.75 L of vodka daily. He reported diffuse abdominal pain, 5/10, and diarrheal episodes. He was admitted to General Medicine for ETOH withdrawl, He was placed on ativan per his CIWA scoring. Started multivitamin supplementation. Social work consultation palced. Due to his 1PPD smoking history he was placed on a nicotine patch, and counselled not to smoke. Initally his transaminases were elevated, this was felt due to his excessive ETOH use, this was monitored and they trended down. On 06/27/16 he told hospital staff, and covering resident physician that he had a family emergency and wanted to leave the hospital. It was clearly relayed to him that he was still undergoing treatment for ETOH withdrawl and that it was unsafe for him to return at this time. He understood the risks involved, ie withdrawl seizures, possiblilty of . He left the hosptial AMA and was asked to follow up with his PCP, or return to the hospital at any time if his symptoms worsened. He was given scripts for multivitamins and discharged AMA. Allergies: Coded Allergies: No Known Drug Allergies (02/03/16) Pertinent Lab Results: Laboratory Tests 06/27/16 0740: Anion Gap 11, Estimated GFR > 60, BUN/Creatinine Ratio 21.3, Total Bilirubin 1.5 H, Direct Bilirubin 0.5 H, AST 85 H, ALT 81 H, Alkaline Phosphatase 81, Total Protein 7.4, Albumin 4.4 Vital Signs Date Time Temp Pulse Resp B/P Pulse O2 O2 Flow FiO2 Ox Delivery Rate 06/27 1435 98.4 90 20 130/80 96 06/27 0729 98.1 100 18 136/78 96 Room Air 06/27 0600 98.2 106 20 142/94 06/27 0400 98.2 106 18 142/94 06/27 0220 98.2 106 18 142/94 06/27 0217 98.2 106 16 142/94 96 Room Air 06/27 0120 98.0 118 20 140/70 06/27 0000 98.0 118 20 140/70 06/26 2314 98.0 118 20 140/70 06/26 2314 118 140/70 06/26 2108 98.0 117 20 140/110 96 Room Air 06/26 1634 98.4 98 20 151/100 97 Room Air Laboratory Tests 06/27 06/26 0740 0330 Chemistry Sodium (137 - 145 mmol/L) 137 140 Potassium (3.5 - 5.1 mmol/L) 3.7 4.1 Chloride (98 - 107 mmol/L) 98 101 Carbon Dioxide (22 - 30 mmol/L) 27 21 L Anion Gap (5 - 16) 11 18 H BUN (9 - 20 mg/dL) 17 21 H Creatinine (0.7 - 1.2 mg/dL) 0.8 0.8 Estimated GFR (>60 ml/min) > 60 > 60 BUN/Creatinine Ratio (7 - 25 %) 21.3 26.3 H Glucose (65 - 99 mg/dL) 150 H Calcium (8.4 - 10.2 mg/dL) 9.6 Magnesium (1.6 - 2.3 mg/dL) 1.7 Total Bilirubin (0.2 - 1.3 mg/dL) 1.5 H 0.8 Direct Bilirubin (< 0.4 mg/dL) 0.5 H AST (17 - 59 U/L) 85 H 120 H ALT (21 - 72 U/L) 81 H 89 H Alkaline Phosphatase (< 127 U/L) 81 79 Total Protein (6.3 - 8.2 g/dL) 7.4 7.7 Albumin (3.5 - 5.0 g/dL) 4.4 4.4 Globulin (1.9 - 4.2 gm/dL) 3.3 Albumin/Globulin Ratio (1.1 - 2.2 %) 1.3 Hematology CBC w Diff NO MAN DIFF REQ WBC (4.8 - 10.8 /CUMM) 7.9 RBC (4.70 - 6.10 /CUMM) 4.76 Hgb (14.0 - 18.0 G/DL) 15.1 Hct (42 - 52 %) 44.3 MCV (80.0 - 94.0 FL) 93.1 MCH (27.0 - 31.0 PG) 31.8 H RDW (11.5 - 14.5 %) 12.9 Plt Count (130 - 400 /CUMM) 304 MPV (7.4 - 10.4 FL) 6.5 L Gran % (42.2 - 75.2 %) 64.0 Lymphocytes % (20.5 - 51.1 %) 28.7 Monocytes % (1.7 - 9.3 %) 6.3 Eosinophils % (0 - 5 %) 0.4 Basophils % (0.0 - 2.0 %) 0.6 Absolute Granulocytes (1.4 - 6.5 /CUMM) 5.1 Absolute Lymphocytes (1.2 - 3.4 /CUMM) 2.3 Absolute Monocytes (0.10 - 0.60 /CUMM) 0.5 Absolute Eosinophils (0.0 - 0.7 /CUMM) 0 Absolute Basophils (0.0 - 0.2 /CUMM) 0.1 PUBS MCHC (33.0 - 37.0 G/DL) 34.2 Toxicology Serum Alcohol (<10 MG/DL) 149.0 Vital Signs Date Time Temp Pulse Resp B/P Pulse O2 O2 Flow FiO2 Ox Delivery Rate 06/27 1435 98.4 90 20 130/80 96 06/27 0729 98.1 100 18 136/78 96 Room Air 06/27 0600 98.2 106 20 142/94 06/27 0400 98.2 106 18 142/94 06/27 0220 98.2 106 18 142/94 06/27 0217 98.2 106 16 142/94 96 Room Air 06/27 0120 98.0 118 20 140/70 06/27 0000 98.0 118 20 140/70 06/26 2314 98.0 118 20 140/70 06/26 2314 118 140/70 06/26 2108 98.0 117 20 140/110 96 Room Air 06/26 1634 98.4 98 20 151/100 97 Room Air Disposition Summary Disposition Principal Diagnosis: ETOH withdrawl Additional Diagnosis: Tobacco use Transaminitis Discharge Disposition: left against medical adv Discharge Instructions General Discharge Information Code Status: Full Code Patient's Diet: Regular Diet Patient's Activity: Independent Follow-Up Instructions/Appts: Please f/u with pcp and AA meetings upon discharge. Medications at Discharge Discharge Medications: Start taking the following new medications: Folic Acid (Folic Acid) 1 MG TABLET 1 Milligram ORAL DAILY Days = 30 No Refills Comments: NOT GIVEN- ALTERNATIVE, IV MULTIVITAMIN BAG GIVEN IN HOSPITAL Thiamine HCl (Vitamin B-1) 50 MG TABLET 50 Milligram ORAL DAILY Days = 30 No Refills Comments: IV MULTIVITAMIN BAG GIVEN WHILE IN HOSPITAL Multivitamin (One Daily Multivitamin) 1 EACH TABLET 1 Tablet ORAL DAILY Days = 30 No Refills Comments: IV MULTIVITAMIN BAG GIVEN WHILE IN HOSPITAL Copies To: JULIEN MUNSON M.D Attending MD Review Statement Documenting Attending: JULIEN MUNSON M.D Other Findings: I have reviewed the discharge summary
--- NOTE | 2016-06-27 16:17 | NUR ---
Referral received to see patient to assess his interest/ motivation in a after hospital treatment plan for his alcohol abuse. I met with the patient and introduced myself and my role. Per the patient , he attends AA regularly. He also expressed interest in our IOP program here which he has also attened in the past. Will attempt to obtain an appointment for him there when they are open tomorrow.
[2016-06-27] MEDS ORDERED: FOLIC ACID1 M1 PO (18:10)
[2016-06-27] MEDS ORDERED: VITAMIN B-150 M1 PO (18:12)
[2016-06-27] MEDS ORDERED: ONE DAILY MULT1 EAC2 PO (18:12)
--- NOTE | 2016-06-27 18:15 | Patient Discharge Instructions ---
Discharge Instructions General Discharge Information You were seen/treated for: - Alcohol withdrawl Special Instructions: - Please F/U with your PCP in one week. - You understand that you can have withdrawl seizures that can be potentially life trhreating and you can . Please return to the ED if your symptoms worsen, and you experinece jitters, seizures etc Diet Recommended Diet: Regular Activity Activity Self Limited: Yes Acute Coronary Syndrome Inclusion Criteria At DC or during hospital stay patient has or had the following: ACS DIAGNOSIS No Discharge Core Measures Meds if any: Prescribed or Continued at Discharge Meds if any: NOT Prescribed or Continued at Discharge Congestive Heart Failure Inclusion Criteria At DC or during hospital stay patient has or had the following: CHF DIAGNOSIS No Discharge Core Measures Meds if any: Prescribed or Continued at Discharge Meds if any: NOT Prescribed or Continued at Discharge Cerebrovascular accident Inclusion Criteria At DC or during hospital stay patient has or had the following: CVA/TIA Diagnosis No Discharge Core Measures Meds if any: Prescribed or Continued at Discharge Meds if any: NOT Prescribed or Continued at Discharge Venous thromboembolism Inclusion Criteria VTE Diagnosis No VTE Type NONE VTE Confirmed by (Test) NONE Discharge Core Measures - Per Current guidelines, there needs to be overlap - treatment for the first 5 days of Warfarin therapy. - If discharged on Warfarin prior to 5 days of - overlap therapy, the patient will need to be - assessed for post discharge needs including - *Post discharge parental anticoagulation - *Warfarin and/or parental anticoagulation education - *Follow up date to check INR post discharge At least 5 days overlap therapy as Inpatient No Meds if any: Prescribed or Continued at Discharge Note: Overlap Therapy is Warfarin and Anticoagulant Meds if any: NOT Prescribed or Continued at Discharge
--- NOTE | 2016-06-27 18:19 | Event Note ---
Event Note Event Note: Called by nursing staff that patient wants to sign out AMA. Went and spoke with the patient. He said he had some family issues,and wants to leave. He understood the consequences of leaving AMA including the potential for life threatening seizures a nd . Patient is in capacity to make decisions. Spoke and updatd my attedning Dr. Beck.
--- NOTE | 2016-06-27 22:25 | NUR ---
PT SIGNED OUT AMA AT 1830 PM. PT WAS EDUCATIONED VIA MD AND MYSELF ON DANGERS OF LEAVING HOSPITAL AGAINST MEDICAL ADVICE. PT WAS OF SOUND MIND. IV WAS REMOVED. SCRIPTS AND PT INFORMTATION GIVEN. NO FURTHER ORDERS.
== END 2016-06-27 18:30 | disposition left against medical advice (07) | DRG 770 ==
LOC: ENRESERVTM → ENRESERVDT → ERH 03:16 → 2NA 09:25 → ERHI 09:25 → 2NA 10:40
PROVIDERS: Emergency Medicine; ADMIT Internal Medicine
DX: F10.239 Alcohol dependence with withdrawal, unspecified (principal); I10 Essential (primary) hypertension; R74.0 Nonspecific elevation of levels of transaminase and lactic acid dehydrogenase [LDH]
CPT/HCPCS: 2NAP; 82436; 96374; G0480; J1650; J2405; J2550; J3101; J3490

== ENCOUNTER 2016-07-01 18:55 | Inpatient (IN) | payer OTHER ==
[~2016-07-01] VITALS: Ht 182.9 cm; Wt 88.5 kg
[~2016-07-01 18:55] MED LIST changes: +FOLIC ACID1 M1 PO; +ONE DAILY MULT1 EAC2 PO; +VITAMIN B-150 M1 PO
--- NOTE | 2016-07-01 19:02 | NUR ---
PT BIBA AFTER FRIENDS CALLED 911 FOR DRINKING AN ENTIRE BOTTLE OF ALCOHOL. PT DENIES SI AND HI. PT ALERT AND ORIENTED.
--- NOTE | 2016-07-01 19:04 | NUR ---
PT REFUSING VITAL SIGNS AND REFUSING TO CHANGE INTO BH SCRUBS AT THIS TIME. SECURITY AT BEDSIDE FOR WANDING. PTS BELONGING SEARCHED. PT NOW SLEEPING IN BED AT THIS TIME. SITTER IN PLACE FOR SAFETY.
--- NOTE | 2016-07-01 19:17 | ED GENERAL ADULT ---
History of Present Illness General Chief Complaint: ETOH/Drug Related Complaint Stated Complaint: ETOH Source: patient Exam Limitations: clinical condition, poor historian, physical impairment Vital Signs & Intake/Output Vital Signs & Intake/Output Vital Signs Date Time Temp Pulse Resp B/P Pulse O2 O2 Flow FiO2 Ox Delivery Rate 07/02 0636 98.8 108 20 150/96 96 Room Air 07/02 0530 98.8 108 20 150/96 07/02 0530 98.8 108 20 150/96 07/02 0430 98.5 100 24 164/100 07/02 0423 98.5 100 24 164/100 98 Room Air 07/02 0257 99.1 98 18 154/91 98 Room Air 07/02 0138 98.9 102 18 162/87 07/02 0138 98.9 102 18 162/87 97 Room Air 07/01 2322 98.2 89 18 142/84 99 Room Air 07/01 2052 98.4 92 18 149/86 98 Room Air ED Intake and Output 07/02 0000 07/01 1200 Intake Total Output Total Balance Patient 175 lb Weight FOR REEVALUATION (KASSY CARLTON DO) Allergies Coded Allergies: No Known Drug Allergies (02/03/16) Reconcile Medications Folic Acid 1 MG TABLET 1 MG PO DAILY supplement Multivitamin (One Daily Multivitamin) 1 EACH TABLET 1 TAB PO DAILY SUPPLEMENT Thiamine HCl (Vitamin B-1) 50 MG TABLET 50 MG PO DAILY ALCOHOL WITHDRAWL Triage Note: PT BIBA AFTER FRIENDS CALLED 911 FOR DRINKING AN ENTIRE BOTTLE OF ALCOHOL. PT DENIES SI AND HI. PT ALERT AND ORIENTED. Triage Nurses Notes Reviewed? yes Unable To Obtain Hx Due To: patient intoxication Onset: Abrupt Duration: unknown duration Timing: unknown HPI: 07/01/16 7:30 PM 51-year-old man presents to the emergency department for alcohol intoxication. Apparently the patient was dropped off by his friend after drinking. He responds to tactile stimuli but is intoxicated. He denies headache abdominal pain or other complaints. He denies any trauma. The onset of the symptoms were abrupt, the duration is unknown, the severity is significant as his symptoms required him to come to the emergency department for care. Past History Travel History Traveled to [place] past 21 day No Medical History Any Pertinent Medical History? see below for history Neurological: NONE EENT: NONE Cardiovascular: hypertension Respiratory: NONE Gastrointestinal: NONE Hepatic: NONE Renal: NONE Musculoskeletal: NONE Psychiatric: alcohol dependence Endocrine: NONE Blood Disorders: NONE Cancer(s): NONE THERMOCOUPLE TESTER/Reproductive: NONE History of MRSA: Yes History of VRE: No History of CDIFF: No Tetanus Vaccine: 07/05/15 Surgical History Surgical History: pilonidal cyst excision, left middle phalanx tenolysis, left shoulder glenohumoral debridement with anterior arthroscopic acromioplasty and distal clavicle excision Psychosocial History Who do you live with Patient/Self Services at Home None What is your primary language Uzbek Tobacco Use: Current Daily Use Daily Tobacco Use Amount/Type: =< 4 Cigarettes daily Family History Family History, If Any: SISTER FH: multiple sclerosis FATHER FH: alcoholism Hx Contributory? No Review of Systems Review of Systems Constitutional: Denies: fever. EENTM: Reports: no symptoms. Respiratory: Reports: no symptoms. Cardiovascular: Reports: no symptoms. GI: Reports: no symptoms. Genitourinary: Reports: no symptoms. Musculoskeletal: Reports: no symptoms. Skin: Reports: no symptoms. Neurological/Psychological: Reports: see HPI. Hematologic/Endocrine: Reports: no symptoms. Immunologic/Allergic: Reports: no symptoms. Physical Exam Physical Exam General Appearance: moderate distress Head: atraumatic, normal appearance Eyes: Bilateral: normal appearance, PERRL, EOMI. Ears, Nose, Throat: normal ENT inspection Neck: supple Respiratory: no respiratory distress Cardiovascular: regular rate/rhythm Peripheral Pulses: 4+ radial (R), 4+ radial (L) Gastrointestinal: non-tender Back: decreased range of motion Extremities: no edema Neurologic/Psych: INTOXICATED, RESPONDS TO TACTILE STIMULI Skin: intact, normal color, warm/dry Core Measures ACS in differential dx? No CVA/TIA Diagnosis: No Severe Sepsis Present: No Septic Shock Present: No Progress Differential Diagnoses I considered the following diagnoses in my evaluation of the patient: [Alcohol intoxication, intracranial bleed, polysubstance abuse, depression] Plan of Care: Orders Procedure Date/time Status Heart Healthy Diet 07/02 B Active Seizure Precautions 07/02 633 Active Precautions 07/02 633 Active CBC WITHOUT DIFFERENTIAL 07/02 599 Active BASIC ELECTROLYTES PLUS BUN&CR 07/02 599 Active Vital Signs 07/03 431 Active Teach/Educate 07/03 431 Active Pain Treatment and Response 07/03 431 Active Nutritional Intake, Monitor 03/19 0432 Active Isolation 03/19 0432 Active Intake & Output 07/02 0432 Active Patient Care Conference 07/02 043 Active Activity/Ambulation 07/02 043 Active Pathway - chart 07/02 0313 Active Pathway - chart 07/02 0312 Active House Staff 07/02 031 Active Patient Data 07/02 031 Active Code Status 07/02 0312 Active Patient Data 07/02 0247 Active Pathway - chart 07/02 0237 Active Admit to inpatient 07/02 0236 Active Vital Signs 07/02 0236 Active Code Status 07/02 0236 Complete CIWA 07/02 0118 Complete Lab Add-on Test 07/02 UNK Active VTE Mechanical Prophylaxis 07/02 UNK Active Seizure Precautions 07/02 UNK Active Precautions 07/02 UNK Active CIWA 07/02 UNK Active SOCIAL WORK CONSULT 07/02 UNK Active MAGNESIUM 07/01 2316 Complete LIPASE 07/02 2315 Complete AMYLASE 07/02 2315 Complete Continuous Observation Monitor 07/01 2038 Complete URINE DRUG SCREEN FOR ER ONLY 07/01 2038 Complete ETHANOL 07/01 2038 Complete COMPREHENSIVE METABOLIC PANEL 07/01 2038 Complete CBC WITHOUT DIFFERENTIAL 07/01 2038 Complete Intake & Output 07/01 2037 Active Current Medications Sig/Liliana Start time Last Medication Dose Stop Time Status Admin Cyanocobalamin/ 1 BAG DAILY 07/02 1000 AC Thiamine/Pyridoxine 07/04 1759 (Vitamin in I.V.) Dextrose/Water 1,000 ML (D5W 1000) Enoxaparin Sodium 40 MG DAILY 07/02 1000 AC (Lovenox) Nicotine 14 MG DAILY 07/02 1000 AC (Nicotine Cq) Pantoprazole Sodium 40 MG DAILY 07/02 1000 AC (Protonix) Acetaminophen 650 MG Q6P PRN 07/02 0315 AC (Tylenol) Ondansetron HCl 4 MG Q6P PRN 07/02 0315 AC (Zofran) Laboratory Tests 07/01/166: Anion Gap 15, Estimated GFR > 60, BUN/Creatinine Ratio 21.4, Glucose 149 H, Calcium 8.7, Magnesium 2.1, Total Bilirubin 0.3, AST 31, ALT 55, Alkaline Phosphatase 61, Total Protein 7.4, Albumin 4.3, Globulin 3.1, Albumin/Globulin Ratio 1.4, Amylase 40, Lipase 160, CBC w Diff NO MAN DIFF REQ, RBC 4.28 L, MCV 93.3, MCH 31.7 H, RDW 13.6, MPV 6.5 L, Gran % 44.8, Lymphocytes % 46.0, Monocytes % 7.7, Eosinophils % 1.0, Basophils % 0.5, Absolute Granulocytes 2.3, Absolute Lymphocytes 2.4, Absolute Monocytes 0.4, Absolute Eosinophils 0.1, Absolute Basophils 0, PUBS MCHC 34.0, Serum Alcohol 290.0 07/01/16 2155: Urine Opiates Screen < 100.00, Methadone Screen < 40, Barbiturate Screen < 60, Ur Phencyclidine Scrn < 6.00, Amphetamines Screen < 100, U Benzodiazepines Scrn 140, Urine Cocaine Screen < 50, Urine Cannabis Screen < 5.00 Initial ED EKG: none Departure Departure Disposition: STILL A PATIENT Condition: Stable Clinical Impression Primary Impression: Alcohol intoxication Referrals: JAMES ACOSTA MD (PCP/Family) Departure Forms: Customer Survey General Discharge Information Comments 07/01/16 Patient was placed in a quiet room labs have been sent. Admission Note Spoke With: GRUPO ROBISON MDRuth Documentation of Exam: Documentation of any treatments & extenuating circumstances including Concerns Regarding Discharge (functional status, medication knowledge or non-compliance, living conditions, etc.) that warrant an admission rather than observation: [The patient has a CIWA score greater than 15, he needs admission for Ativan protocol , he also has a history of alcohol withdrawal seizures] Alcohol Withdrawl Admission ED Alcohol Detox Admission d/t: CIWA Score >15, DTs/Seizure w/i last year Critical Care Note Critical Care Note Critical Care Time: 30-74 min
--- NOTE | 2016-07-01 20:24 | NUR ---
PT SLEEPING AT THIS CURRENT TIME, REGULAR RESIPIRATIONS NOTED. NO DISTRESS. SITTER IN PLACE FOR SAFETY, WILL CTM.
--- NOTE | 2016-07-01 22:47 | NUR ---
PT REMAINS ASLEEP, RR NOTED, NAD. SITTER IN PLACE.
[2016-07-01 23:31] LABS: ABSOLUTE BASOPHIL COUNT 0 /CUMM (0.0-0.2); ABSOLUTE EOSINOPHIL COUNT 0.1 /CUMM (0.0-0.7); ABSOLUTE GRANULOCYTE CT 2.3 /CUMM (1.4-6.5); ABSOLUTE LYMPH COUNT 2.4 /CUMM (1.2-3.4); ABSOLUTE MONOCYTE COUNT 0.4 /CUMM (0.10-0.60); BASOPHIL % 0.5 % (0.0-2.0); GRANULOCYTE % 44.8 % (42.2-75.2); MEAN CORPUSCULAR HGB 31.7 PG (27.0-31.0); MEAN CORPUSCULAR VOLUME 93.3 FL (80.0-94.0); MEAN PLATELET VOLUME 6.5 FL (7.4-10.4); PLATELET COUNT 233 /CUMM (130-400); RBC DISTRIBUTION WIDTH 13.6 % (11.5-14.5); RED BLOOD CELL CT 4.28 /CUMM (4.70-6.10); WHITE BLOOD CELL COUNT 5.2 /CUMM (4.8-10.8)
[2016-07-02] VITALS (19 sets, daily range): BP systolic 150–168; BP diastolic 87–110
--- NOTE | 2016-07-02 00:54 | NUR ---
PT REMAINS ASLEEP AT THIS TIME. BILATERAL CHEST RISE AND FALL. NAD. SITTER IN PLACE.
--- NOTE | 2016-07-02 03:03 | NUR ---
PT MEDICATED WITH 4MG ATIVAN PER EMAR
--- NOTE | 2016-07-02 03:03 | NUR ---
HOUSE STAFF AT BEDSIDE
--- NOTE | 2016-07-02 03:10 | History & Physical ---
BERNARD VIGIL MD 07/02/16 0309: General Information and HPI MD Statement: I have seen and personally examined BRYAN GUO and documented this H&P. The patient is a 51 year old M who presented with a patient stated chief complaint of etoh intoxication. Source of Information: patient, old records Exam Limitations: no limitations History of Present Illness: Mr. Guo is a 51 year old male with PMH ETOH abuse, ETOH withdrawl seizure in August 2015, HTN and tobacco abuse who presents with chief complaint of intoxication. Patient reports that he recently signed out against medical advice on 06/27/16 after being admitted for alcohol detoxification. Immediately upon signing out against medical advice, he returned to drinking. He reports he drinks up to 1/2 gallon of whiskey daily. He previously drank vodka but due to excessive acidity from this, he switched to whiskey. 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 He believes he may be fired soon. Patient knows he needs to change his way of life and is requesting detoxification. Patient currently reports nausea, non-bloody vomiting, generalized abdominal pain and a recent fall in his driveway without trauma to his head due to excessive intoxication. He currently denies fever, chills, chest pain, palpitaitons, shortness of breath or bowel/ bladder changes. Social history is significant for years of tobacco abuse at 1 ppd. He denies illicit drug use and ETOH history as above. He does not see any specialists. Allergies/Medications Allergies: Coded Allergies: No Known Drug Allergies (02/03/16) Home Med list Folic Acid 1 MG TABLET 1 MG PO DAILY supplement Multivitamin (One Daily Multivitamin) 1 EACH TABLET 1 TAB PO DAILY SUPPLEMENT Thiamine HCl (Vitamin B-1) 50 MG TABLET 50 MG PO DAILY ALCOHOL WITHDRAWL Compliance With Home Meds: FAIR Past History Travel History Traveled to [place] past 21 day No Medical History Neurological: NONE EENT: NONE Cardiovascular: hypertension Respiratory: NONE Gastrointestinal: NONE Hepatic: NONE Renal: NONE Musculoskeletal: NONE Psychiatric: alcohol dependence Endocrine: NONE Blood Disorders: NONE Cancer(s): NONE 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 Home Who Do You Live With? fiance Services at Home: None Primary Language: Venezuelan Smoking Status: Current Everyday Smoker ETOH Use: heavy use Illicit Drug Use: denies illicit drug use Living Will? no Functional Ability ADLs Independent: dressing, eating, toileting, bathing. Ambulation: independent IADLs Independent: shopping, housework, finances, food prep, telephone, transportation , medication admin. Sexual History Sexually Active Yes Employment History Employment Employed Review of Systems Review of Systems Constitutional: Denies: chills, diaphoresis, fever, weakness. EENTM: Denies: blurred vision, visual changes, hearing changes, nasal congestion. Cardiovascular: Denies: chest pain, palpitations, peripheral edema, syncope. Respiratory: Denies: cough, short of breath, sputum production, wheezing. GI: Reports: abdominal pain, nausea, vomiting. Denies: constipation, diarrhea, bloody stool, changes in stool. Genitourinary: Denies: dysuria, hematuria. Musculoskeletal: Denies: back pain, joint pain. Skin: Reports: lesions (Right bruno abrasion s/p fall). Neurological/Psychological: Reports: tremors. Denies: confusion, headache, paresthesia, weakness. Hematologic/Endocrine: Denies: bruising, bleeding. Immunologic/Allergic: Denies: splenectomy. All Other Systems: Reviewed and Negative Exam & Diagnostic Data Last 24 Hrs of Vital Signs/I&O Vital Signs Date Time Temp Pulse Resp B/P Pulse O2 O2 Flow FiO2 Ox Delivery Rate 07/02 0257 99.1 98 18 154/91 98 Room Air 07/02 0138 98.9 102 18 162/87 07/02 013 98.9 102 18 162/87 97 Room Air 07/01 2321 98.2 89 18 142/84 99 Room Air 07/02 2051 98.4 92 18 149/86 98 Room Air Intake & Output 07/02 0800 07/02 0000 07/01 1600 Intake Total Output Total Balance Patient 175 lb Weight Physical Exam General Appearance Alert, Oriented X3, Cooperative, No Acute Distress Skin Right bruno abrasion without bleeding HEENT Atraumatic, PERRLA, EOMI, Mucous Membr. moist/pink Neck Supple, No JVD Lymphatic Cervical nl Cardiovascular Regular Rate, Normal S1, Normal S2, No Murmurs Lungs Clear to Auscultation, Normal Air Movement Abdomen Normal Bowel Sounds, Soft, mild tenderness to palpation of right sided abdomen Neurological Normal Speech, Strength at 5/5 X4 Ext, Normal Tone, Tremulousness noted Extremities No Clubbing, No Cyanosis, No Edema, No Tenderness/Swelling Vascular Pulses Symmetrical Last 24 Hrs of Labs/Cesario: Laboratory Tests 07/01/16 2316: Anion Gap 15, Estimated GFR > 60, BUN/Creatinine Ratio 21.4, Glucose 149 H, Calcium 8.7, Total Bilirubin 0.3, AST 31, ALT 55, Alkaline Phosphatase 61, Total Protein 7.4, Albumin 4.3, Globulin 3.1, Albumin/Globulin Ratio 1.4, CBC w Diff NO MAN DIFF REQ, RBC 4.28 L, MCV 93.3, MCH 31.7 H, RDW 13.6, MPV 6.5 L, Gran % 44.8, Lymphocytes % 46.0, Monocytes % 7.7, Eosinophils % 1.0, Basophils % 0.5, Absolute Granulocytes 2.3, Absolute Lymphocytes 2.4, Absolute Monocytes 0.4, Absolute Eosinophils 0.1, Absolute Basophils 0, PUBS MCHC 34.0, Serum Alcohol 290.0 07/01/16 2155: Urine Opiates Screen < 100.00, Methadone Screen < 40, Barbiturate Screen < 60, Ur Phencyclidine Scrn < 6.00, Amphetamines Screen < 100, U Benzodiazepines Scrn 140, Urine Cocaine Screen < 50, Urine Cannabis Screen < 5.00 Diagnostic Data EKG Results None. Assessment/Plan Assessment: Mr. Guo is a 51 year old male with PMH alcohol abuse, alcohol withdrawl seizure in August 2015, HTN and tobacco abuse who presents with chief complaint of alcohol intoxication. Patient notes he was recently admitted June 16, 2016 for alcohol detoxification and signed out against medical advice the following day. He immediately returned to drinking up to 1/2 gallon of Fast FiBR a day and has been missing several days of work. Patient notes nausea, vomiting, mild abdominal pain and tremulousness. In the ED: Vital signs showed T 98.2, HR 89, RR 18, BP 142/84 and O2 saturation of 99% on room air. Labs were significant for H&H 13.6/40, Glu 149, Alcohol level of 290 and AST/ALT within normal limits. He is admitted to the general medicine floor and the following is the management : 1. ETOH abuse requiring detoxification * Patient counseled on ETOH abuse and risks of continued drinking * Seizure and fall precautions * CIWA scoring * IV ativan per CIWA and 2 mg atival PO Q6 * Banana bag x 3 at 125 cc/h * IV protonix 40 mg daily for alcoholic gastritis * IV zofran PRN nausea * Tylenol for mild pain * Social work consult to discuss alcohol cessation options * Monitor closely for signs of withdrawl 2. Tobacco abuse * Patient couseled on tobacco cessation, unwilling to quit at this time * Nicotine patch 14 mg top daily FULL CODE DVTP: SC Lovenox Heart Healthy Diet Mild pain pathway As Ranked By This Provider Problem List: 1. Alcohol abuse 2. Alcohol intoxication Core Measures/Miscellaneous Acute Coronary Syndrome ACS Diagnosis: No Cerebrovascular Accident CVA/TIA Diagnosis: No Congestive Heart Failure CHF Diagnosis: No Venous Thromboembolism VTE Risk Factors: Acute medical illness, Age > 40, Smoking No [facility] VTE prophylaxis d/t: No contraindications No VTE Pharm Prophylaxis d/t: No contraindications VTE Diagnosis: No VTE Type: NONE VTE Confirmed by (Test): NONE Severe Sepsis Severe Sepsis Present: No Septic Shock Septic Shock Present: No Miscellaneous Documentation Attending Case D[facility]ed [facility] Primary Care Physician: JAMES ACOSTA MD Patient sees these Specialists None. Level of Patient Care: Telemetry WILLA DEGROOT MD 07/02/16 0328: Resident Review Statement Resident Statement: examined this patient, discussed with video intern, agreed with video intern, discussed with family Other Findings: 51 Y/O M with H/O ETOH usage, recently admitted to for detox, signed out AMA one day later, presents to the ED for the same. Patient states that since discharge, he started to drink 1/2 gallon of whisky per day along with a couple of beers here and there. He does not endorse suicidal or homicidal ideation. Has a history of ETOH related seizures in August. Plan: - Admit to for ETOH detox - [facility] protocol - Start Ativan PO 2Q6 and Ativan IV Per CIWA - Banana bag for now, this can be transitioned to PO soon. 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 He reports drinking 1/2 gallon of whisky and some beers everyday, last drink was just before coming to ER. No SI or HI. He sustained a fall in his driveway and hit his back, denies head strike. He reports nausea and vomiting with some mid-abdominal discomfort, but denies hematemesis or heartburn. He was able to tolerate food after coming to ER. Vitals stable except for tachycardia (90-100) and hypertension (154/91). Exam: AAO, dry mucous membranes, tremors++, otherwise benign exam. Labs: S alcohol 290 , glucose 149, Utox neg. 1. Alcohol detox. admit, seizure and fall precautions, [facility] protocol, IV ativan per [facility], PO ativan 2 mg Q6, banana bag, Social work consult. Check amylase, lipase and magnesium levels. Replete electrolytes as needed. 2. Alcoholic gastritis. IV PPI, anti-emetics. Advance diet as tolerated. 3. Smoking cessation counseling, nicotine patch. DVT ppx Lovenox. Full code.
--- NOTE | 2016-07-02 03:54 | NUR ---
REPORT CALLED TO DILIA JORDAN
--- NOTE | 2016-07-02 04:16 | Admission Certification ---
Admission Certification Certification Statement - As attending physician, I certify that at the time of - admission, based on clinical presentation, severity of - symptoms, need for further diagnostic testing and - therapeutic interventions, and risk of adverse outcomes - without in-hospital treatment, in my clinical assessment, - this patient requires an acute hospital stay for a minimum - of two nights or longer. I have also considered psychsocial - factors such as support system, advanced age, financial - issues, cognitive issues, and failed out-patient treatments, - past re-admission history, safety of patient, and lack of - compliance as applicable. Specific rationale supporting this admission is: Alcohol detox requiring IV benzodiazepine therapy and IV fluids.
--- NOTE | 2016-07-02 04:30 | NUR ---
NURSING NOTE: PT ARRIVED TO FLOOR FROM ED. VSS: BP 164/100, HR 100, TEMP 98.5, RR 24, AND 98% ON ROOM AIR. PT A&OX3, EXPERIENCING TREMORS, HEADACHE, SWEATS. CIWA SCORE 12, 2 MG ATIVAN GIVEN. PT CAME UP TO FLOOR WITH NO IV ACCESS. ED NURSE CALLED AND CAME UP TO FLOOR TO PLACE IV IN PT. PT IN BLUE SCRUBS. BELONGINGS BAG REMOVED FROM PT'S ROOM. AWAIT FURTHER ORDERS FROM MD. WILL CONTINUE TO MONITOR.
[2016-07-02 08:20] LABS: ABSOLUTE BASOPHIL COUNT 0 /CUMM (0.0-0.2); ABSOLUTE EOSINOPHIL COUNT 0 /CUMM (0.0-0.7); ABSOLUTE GRANULOCYTE CT 2.4 /CUMM (1.4-6.5); ABSOLUTE LYMPH COUNT 1.9 /CUMM (1.2-3.4); ABSOLUTE MONOCYTE COUNT 0.4 /CUMM (0.10-0.60); BASOPHIL % 0.4 % (0.0-2.0); EOSINOPHIL % 0.9 % (0-5); GRANULOCYTE % 49.9 % (42.2-75.2); HEMATOCRIT 36.7 % (42-52); MEAN CORPUSCULAR HGB 32.2 PG (27.0-31.0); MEAN CORPUSCULAR HGB CONC 34.3 G/DL (33.0-37.0); MEAN CORPUSCULAR VOLUME 93.9 FL (80.0-94.0); MEAN PLATELET VOLUME 6.7 FL (7.4-10.4); PLATELET COUNT 218 /CUMM (130-400); RBC DISTRIBUTION WIDTH 13.5 % (11.5-14.5); RED BLOOD CELL CT 3.91 /CUMM (4.70-6.10); WHITE BLOOD CELL COUNT 4.7 /CUMM (4.8-10.8)
--- NOTE | 2016-07-02 12:22 | PN- Att Addend ---
Attending Addendum Attending Brief Note Patient seen and examined. Plan of care discussed with the medical team and the patient. Available lab work and radiology test reports were reviewed. Patient complains of being jittery and shaky. Denies any recent fever chills. He also feels unsteady on his feet. Denies any hallucinations. Vital Signs Date Time Temp Pulse Resp B/P Pulse O2 O2 Flow FiO2 Ox Delivery Rate 07/02 0636 98.8 108 20 150/96 96 Room Air 07/02 0530 98.8 108 20 150/96 07/02 0530 98.8 108 20 150/96 07/02 0430 98.5 100 24 164/100 07/02 0423 98.5 100 24 164/100 98 Room Air 07/02 0257 99.1 98 18 154/91 98 Room Air 07/02 0138 98.9 102 18 162/87 07/02 0138 98.9 102 18 162/87 97 Room Air 07/01 2322 98.2 89 18 142/84 99 Room Air 07/01 2052 98.4 92 18 149/86 98 Room Air Intake & Output 07/02 1600 07/02 0800 07/02 0000 Intake Total 240 Output Total Balance 240 Intake, Oral 240 Patient 195 lb 175 lb Weight Exam: General: Patient awake alert oriented but tremulous without any distress CVS: S1 plus S2 without any murmur or gallops Chest: Few scattered crepitation without any wheeze. There is no respiratory distress. 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 but Awake alert oriented without any focal neuro deficit and follows command appropriately Extremities: No edema; no clubbing or cyanosis noted Laboratory Tests 07/02 07/01 0648 2316 Chemistry Sodium (137 - 145 mmol/L) 141 144 Potassium (3.5 - 5.1 mmol/L) 4.0 4.2 Chloride (98 - 107 mmol/L) 105 104 Carbon Dioxide (22 - 30 mmol/L) 25 25 Anion Gap (5 - 16) 12 15 BUN (9 - 20 mg/dL) 14 15 Creatinine (0.7 - 1.2 mg/dL) 0.7 0.7 Estimated GFR (>60 ml/min) > 60 > 60 BUN/Creatinine Ratio (7 - 25 %) 20.0 21.4 Glucose (65 - 99 mg/dL) 149 H Calcium (8.4 - 10.2 mg/dL) 8.7 Magnesium (1.6 - 2.3 mg/dL) 2.1 Total Bilirubin (0.2 - 1.3 mg/dL) 0.3 AST (17 - 59 U/L) 31 ALT (21 - 72 U/L) 55 Alkaline Phosphatase (< 127 U/L) 61 Total Protein (6.3 - 8.2 g/dL) 7.4 Albumin (3.5 - 5.0 g/dL) 4.3 Globulin (1.9 - 4.2 gm/dL) 3.1 Albumin/Globulin Ratio (1.1 - 2.2 %) 1.4 Amylase (30 - 110 U/L) 40 Lipase (23 - 300 U/L) 160 Hematology CBC w Diff NO MAN DIFF REQ NO MAN DIFF REQ WBC (4.8 - 10.8 /CUMM) 4.7 L 5.2 RBC (4.70 - 6.10 /CUMM) 3.91 L 4.28 L Hgb (14.0 - 18.0 G/DL) 12.6 L 13.6 L Hct (42 - 52 %) 36.7 L 40.0 L MCV (80.0 - 94.0 FL) 93.9 93.3 MCH (27.0 - 31.0 PG) 32.2 H 31.7 H RDW (11.5 - 14.5 %) 13.5 13.6 Plt Count (130 - 400 /CUMM) 218 233 MPV (7.4 - 10.4 FL) 6.7 L 6.5 L Gran % (42.2 - 75.2 %) 49.9 44.8 Lymphocytes % (20.5 - 51.1 %) 40.2 46.0 Monocytes % (1.7 - 9.3 %) 8.6 7.7 Eosinophils % (0 - 5 %) 0.9 1.0 Basophils % (0.0 - 2.0 %) 0.4 0.5 Absolute Granulocytes (1.4 - 6.5 /CUMM) 2.4 2.3 Absolute Lymphocytes (1.2 - 3.4 /CUMM) 1.9 2.4 Absolute Monocytes (0.10 - 0.60 /CUMM) 0.4 0.4 Absolute Eosinophils (0.0 - 0.7 /CUMM) 0 0.1 Absolute Basophils (0.0 - 0.2 /CUMM) 0 0 PUBS MCHC (33.0 - 37.0 G/DL) 34.3 34.0 Toxicology Serum Alcohol (<10 MG/DL) 290.0 07/01 2155 Toxicology Urine Opiates Screen (>2000 NG/ML) < 100.00 Methadone Screen (>300 NG/ML) < 40 Barbiturate Screen (>200 NG/ML) < 60 Ur Phencyclidine Scrn (>25 NG/ML) < 6.00 Amphetamines Screen (>1000 NG/ML) < 100 U Benzodiazepines Scrn (>200 NG/ML) 140 Urine Cocaine Screen (>300 NG/ML) < 50 Urine Cannabis Screen (>50 NG/ML) < 5.00 Assessment * Alcohol withdrawal- patient's symptoms are not well-controlled and he is very tremulous. His peak CIWA was 20. * Alcohol abuse * History of hypertension * History of smoking Plan * Increase Ativan 3 mg every 6 hours [id number] today; adjust Ativan downward if patient stable tomorrow. Continue when necessary CIWAprotocol as well
--- NOTE | 2016-07-02 20:48 | Patient Discharge Instructions ---
Discharge Instructions General Discharge Information You were seen/treated for: ALCOHOL DETOX Watch for these problems: TREMULOUSNESS, FEELING ILL, SEIZURES Special Instructions: RETURN TO ER IF UNWELL. SEEK IMMEDIATE MEDICAL ATTENTION Diet Continue normal diet: Yes Acute Coronary Syndrome Inclusion Criteria At DC or during hospital stay patient has or had the following: ACS DIAGNOSIS No Discharge Core Measures Meds if any: Prescribed or Continued at Discharge Meds if any: NOT Prescribed or Continued at Discharge Congestive Heart Failure Inclusion Criteria At DC or during hospital stay patient has or had the following: CHF DIAGNOSIS No Discharge Core Measures Meds if any: Prescribed or Continued at Discharge Meds if any: NOT Prescribed or Continued at Discharge Cerebrovascular accident Inclusion Criteria At DC or during hospital stay patient has or had the following: CVA/TIA Diagnosis No Discharge Core Measures Meds if any: Prescribed or Continued at Discharge Meds if any: NOT Prescribed or Continued at Discharge Venous thromboembolism Inclusion Criteria VTE Diagnosis No VTE Type NONE VTE Confirmed by (Test) NONE Discharge Core Measures - Per Current guidelines, there needs to be overlap - treatment for the first 5 days of Warfarin therapy. - If discharged on Warfarin prior to 5 days of - overlap therapy, the patient will need to be - assessed for post discharge needs including - *Post discharge parental anticoagulation - *Warfarin and/or parental anticoagulation education - *Follow up date to check INR post discharge At least 5 days overlap therapy as Inpatient No Meds if any: Prescribed or Continued at Discharge Note: Overlap Therapy is Warfarin and Anticoagulant Meds if any: NOT Prescribed or Continued at Discharge
--- NOTE | 2016-07-02 22:25 | Event Note ---
Event Note Event Note: at around 8pm dom pt stated he wished to leave AMA. I spoke with him extensively and informed him that his last drink was less than 48 hrs ago, he was at high risk of seizures his ativan requirement was quite high at 19 mg in under 24 hrs, his last drink was little over 24 hrs ago and he has hx of etoh seizures. Pt was recently admitted for similar complaint under two weeks ago and similarly left AMA and returned requesting etoh detox. I also informed him that we could not give him any ativan to taper on outpatinet basis if he left AMA. Pt was awake, alert, oriented x3, was able to verbalize understanding that adverse consequences of leaving AMA at this time included DT, withdrawl seizure and possibly . He had no sign of tremor, however BP was elevated in 170; satting well, lucid, not agitated or aggressive. 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 After I discussed options with patient, Dr. Aden attempted a second time to speak with patient but to no avail. Pt left AMA and signed necessary paperwork. I called his next of kin, sister, and left message informing pt left AMA; additionally, I called pt's personal contact number to ensure that he reached home safely. The phone went directly to message and I left one informing him that I called to ensure a safe discharge. Note, pt did NOT get an ativan taper on outpatient basis as the risks outweighed the benefit. He denied SI/HI. Attending addendum Residents discussed in detail with patient about risk and consequences of leaving against medical advice including seizure, aspiration and . Patient was not suicidal or homicidal. He signed AMA paperwork. Even before a CMR (no scripts) could be provided, patient left the premises. I discussed with Rafa Feliz (heater helper forge psychiatrist) who suggested we could do a PEC (mandates patient to stay in hospital for 72 hours) given high risk of consequences, however by then the patient had left the premises. Dr. Martell also suggested that we call his family to ensure he reached safe. I personally called patient's sister (Agatha Rodrigues) and left a VM to contact me. Dr. Ellie Singh MD
--- NOTE | 2016-07-10 04:34 | Discharge Summary ---
Visit Information Visit Dates Admission Date: 07/02/16 Discharge Date: 07/02/16 Hospital Course Course Attending Physician: GRUPO ROBISON MDRuth Primary Care Physician: KARLA PIZARRO,JAMES Nelson Hospital Course: Pt came in for ETOH detox. At around 8pm on day of admission pt stated he wished to leave AMA. I spoke with him extensively and informed him that his last drink was less than 48 hrs ago, he was at high risk of seizures his ativan requirement was quite high at 19 mg in under 24 hrs, his last drink was little over 24 hrs ago and he has hx of etoh seizures. Pt was recently admitted for similar complaint under two weeks ago and similarly left AMA and returned requesting etoh detox. I also informed him that we could not give him any ativan to taper on outpatinet basis if he left AMA. Pt was awake, alert, oriented x3, was able to verbalize understanding that adverse consequences of leaving AMA at this time included DT, withdrawl seizure and possibly . He had no sign of tremor, however BP was elevated in 170; satting well, lucid, not agitated or aggressive. 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 After I discussed options with patient, Dr. Aden attempted a second time to speak with patient but to no avail. Pt left AMA and signed necessary paperwork. I called his next of kin, sister, and left message informing pt left AMA; additionally, I called pt's personal contact number to ensure that he reached home safely. The phone went directly to message and I left one informing him that I called to ensure a safe discharge. Note, pt did NOT get an ativan taper on outpatient basis as the risks outweighed the benefit. He denied SI/HI. Allergies: Coded Allergies: No Known Drug Allergies (02/03/16) Disposition Summary Disposition Principal Diagnosis: alcohol withdrawl Additional Diagnosis: substance abuse Discharge Disposition: left against medical adv Discharge Instructions General Discharge Information Code Status: Full Code Patient's Diet: regular Patient's Activity: as tolerated Follow-Up Instructions/Appts: follow up with PCP in one week. If symptoms worsen or pt has seizures, DT, AMS, or feels like his health is in danger then he should return to ED. Medications at Discharge Discharge Medications: Continue taking these medications: Folic Acid (Folic Acid) 1 MG TABLET 1 Milligram ORAL DAILY Days = 30 Comments: NOT GIVEN- ALTERNATIVE, IV MULTIVITAMIN BAG GIVEN IN HOSPITAL Thiamine HCl (Vitamin B-1) 50 MG TABLET 50 Milligram ORAL DAILY Days = 30 Comments: IV MULTIVITAMIN BAG GIVEN WHILE IN HOSPITAL Multivitamin (One Daily Multivitamin) 1 EACH TABLET 1 Tablet ORAL DAILY Days = 30 Comments: IV MULTIVITAMIN BAG GIVEN WHILE IN HOSPITAL Copies To: KARLA PIZARRO,JAMES Nelson
== END 2016-07-02 20:50 | disposition left against medical advice (07) | DRG 770 ==
LOC: ENRESERVDT → ENRESERVTM → ERH 18:55 → 2NB 07-02 02:36 → ERHI 07-02 02:36 → 2NB 07-02 04:17
PROVIDERS: Emergency Medicine; Internal Medicine; ADMIT Student in an Organized Health Care Education/Training Program
DX: F10.239 Alcohol dependence with withdrawal, unspecified (principal); F17.210 Nicotine dependence, cigarettes, uncomplicated; Y90.6 Blood alcohol level of 120-199 mg/100 ml
CPT/HCPCS: 2NBP; 80307; 82436; G0480; J1650; J7060